=== PATIENT | female | born 1945 | race Caucasian/White ===

== ENCOUNTER → 2018-05-05 19:43 | Outpatient (CLI) | payer MEDICARE, OTHER | END | disposition home or self-care (01) | LOC: D.SLEEP 08:00 | DX: G47.9 Sleep disorder, unspecified (principal) ==

== ENCOUNTER → 2018-12-12 09:51 | Outpatient (CLI) | payer MEDICARE, OTHER ==
[2018-12-13 08:16] LABS: IMMUNOGLOBULIN A 219 mg/dL (64-422); IMMUNOGLOBULIN G 762 mg/dL (700-1600)
== END | disposition home or self-care (01) ==
LOC: D.RT 09:51
PROVIDERS: Internal Medicine Pulmonary Disease
DX: J44.9 Chronic obstructive pulmonary disease, unspecified (principal)